=== PATIENT | female | born 2000 | race Caucasian/White ===

== ENCOUNTER 2019-02-22 13:42 | Emergency (ER) | payer OTHER ==
[2019-02-22] MEDS ORDERED: Ondansetron ODT TAB* 4 MG SL PRN (14:00)
--- NOTE | 2019-02-22 14:07 | ED ---
Head Injury - HPI Summary HPI Summary: The pt is a 18 yr old female presenting [place] [facility] [place]/o nausea and vomiting after hitting her head 1 day [employer]. She states that last night before going to bed she hit her head on a window frame. Today she has been experiencing nausea and vomited once in urgent care and another time right before arriving at the ED. She mentions that she starts to become dizzy when she stands up and ambulates and notes that her gait is more unsteady than usual. She rates her current pain severity a 4/10. No aggravating or alleviating factors noted. She also reports some headache but denies any neck pain or LOC. - History Of Current Complaint Chief Complaint: EDHeadInjury Stated Complaint: HEAD INJ PER PT Time Seen by Provider: 02/22/19 13:52 Hx Obtained From: Patient Hx Last Menstrual Period: Currently Onset/Duration: Started Days Ago, Still Present Onset of Pain: Days, Post Accident Severity Currently: Moderate Severity Initially: Moderate Pain Intensity: 4 Pain Scale Used: 0-10 Numeric Location of Head Injury: Occipital Location: Discrete At: - back of head Aggravating Factor(s): Other: - nothing Alleviating Factor(s): Other: - nothing Associated Signs And Symptoms: Negative - LOC, neck pain, Nausea, Vomiting, Headache, Other: - pos - dizziness - Allergies/Home Medications Allergies/Adverse Reactions: Allergies Allergy/AdvReac Type Severity Reaction Status Date / Time No Known Allergies Allergy Verified 02/22/19 13:50 PMH/Surg Hx/FS Hx/Imm Hx Sensory History: Denies: Hx Legally Blind, Hx Deafness Opthamlomology History: Denies: Hx Legally Blind EENT History: Denies: Hx Deafness - Surgical History Surgical History: None Surgery Procedure, Year, and Place: none Infectious Disease History: No Infectious Disease History: Denies: Traveled Outside the [place] in Last 30 Days - Family History Known Family History: Negative: Renal Disease - Social History Alcohol Use: Occasionally Hx Substance Use: No Substance Use Type: Reports: None Hx Tobacco Use: No Review of Systems Positive: Vomiting, Nausea, Other - neg - neck pain Neurological: Other - pos - dizziness Positive: Headache. Negative: Syncope All Other Systems Reviewed And Are Negative: Yes Physical Exam - Summary Physical Exam Summary: GENERAL NORMAL EXAM: VITAL SIGNS: Reviewed. GENERAL: Patient is a well-developed and nourished female who is lying comfortable in the stretcher. Patient is not in any acute respiratory distress. HEAD AND FACE: No signs of trauma. No ecchymosis, hematomas or skull depressions. No sinus tenderness. EYES: PERRLA, EOMI x 2, No injected conjunctiva, no nystagmus. EARS: Hearing grossly intact. Ear canals and tympanic membranes are within normal limits. MOUTH: Oropharynx within normal limits. NECK: Supple, trachea is midline, no adenopathy, no JVD, no carotid bruit, no c- spine tenderness, neck with full ROM. CHEST: Symmetric, no tenderness at palpation. LUNGS: Clear to auscultation bilaterally. No wheezing or crackles. CVS: Regular rate and rhythm, S1 and S2 present, no murmurs or gallops appreciated. ABDOMEN: Soft, non-tender. No signs of distention. No rebound, no guarding, and no masses palpated. Bowel sounds are normal. EXTREMITIES: FROM in all major joints, no edema, no cyanosis or clubbing. NEURO: Alert and oriented x 3. No acute neurological deficits. Speech is normal and follows commands. Unsteady gait. GCS of 15 (see scale) SKIN: Dry and warm. Triage Information Reviewed: Yes Vital Signs On Initial Exam: Initial Vitals Temp Pulse Resp BP Pulse Ox 97 F 98 16 122/76 97 02/22/19 13:47 02/22/19 13:47 02/22/19 13:47 02/22/19 13:47 02/22/19 13:47 Vital Signs Reviewed: Yes - Francisco Coma Scale Best Eye Response: 4 - Spontaneous Best Motor Response: 6 - Obeys Commands Best Verbal Response: 5 - Oriented Coma Scale Total: 15 Procedures - Sedation Patient Received Moderate/Deep Sedation with Procedure: No Diagnostics - Vital Signs Vital Signs Temp Pulse Resp BP Pulse Ox 02/22/19 13:47 97 F 98 16 122/76 97 - Laboratory Lab Statement: Any lab studies that have been ordered have been reviewed, and results considered in the medical decision making process. - CT Brain CT CT Interpretation Completed By: Radiologist Summary of CT Findings: IMPRESSION: NO EVIDENCE FOR ACUTE INTRACRANIAL ABNORMALITY. ED Physician has reviewed this report. Head Injury Course/Dx Assessment/Plan: Patient is a 18-year-old female who presents to the emergency department with a chief complaint of having headache nausea and vomiting and dizziness. She reports that she had a head injury last night. Head CT impression: No acute intracranial pathology. In the ED course the patient was given Zofran for nausea and vomiting and the symptoms improved. At this point I discussed all the findings and test results with the patient. He was instructed to return to the emergency room immediately if any of the symptoms return or worsen. Patient understands and agrees. Neurological exam before discharge: Patient is alert and oriented x 3. No acute neurological deficits. Patient's vital signs are stable. Patient is to follow up with PCP in the next 2 3 days. They understand and agree. Plan of care was discussed with the patient and patient understands and agrees with the plan of care. All questions were answered at patient satisfaction. There were no further complaints or concerns. - Diagnoses Provider Diagnoses: Head injury Discharge ED - Sign-Out/Discharge Documenting (check all that apply): Patient Departure - discharge - Discharge Plan Condition: Stable Disposition: HOME Prescriptions: Ondansetron ODT TAB* [Zofran 4 MG Odt TAB*] 8 mg SL Q6H PRN #10 tab PRN Reason: Nausea/Vomiting Patient Education Materials: Head Injury (ED) Referrals: [facility] [Primary Care Provider] - 3 Days Additional Instructions: FOLLOW UP WITH YOUR PRIMARY CARE PROVIDER WITHIN 3 DAYS. RETURN TO THE ED FOR ANY WORSENING OR NEW SYMPTOMS. - Billing Disposition and Condition Condition: STABLE Disposition: Home - Attestation Statements Document Initiated by Marixa: Yes Documenting Scribe: Sadiq Whatley Provider For Whom Marixa is Documenting (Include Credential): Augustine Garcia MD Scribe Attestation: Sadiq Smith, priyankibed for Augustine Garcia MD on 02/22/19 at 1831. Scribe Documentation Reviewed: Yes Provider Attestation: The documentation as recorded by the Sadiq torres accurately reflects the service I personally performed and the decisions made by , Augustine Garcia MD Status of Scribe Document: Viewed
[2019-02-22 15:27] VITALS: BP 115/59
== END 2019-02-22 15:12 | disposition home or self-care (01) ==
LOC: ED 13:42
DX: S09.90XA Unspecified injury of head, initial encounter (principal); W22.09XA Striking against other stationary object, initial encounter; Y92.9 Unspecified place or not applicable
CPT/HCPCS: 70450; 99282